=== PATIENT | male | born 1995 | race Hispanic/Latino ===

== ENCOUNTER 2024-01-16 18:22 | Observation (INO) | payer SELFPAY ==
[2024-01-16 18:27] VITALS: BP 112/100; PULSE 107; RESP 20; TEMP 36; O2SAT 99
[2024-01-16 19:27] VITALS: BP 132/91; PULSE 100; RESP 15; O2SAT 98
--- NOTE | 2024-01-16 19:33 | ED.RECABL ---
HPI - Recheck/Abnormal Lab/Rx General Chief Complaint: Recheck/Abnormal Lab/Rx Stated Complaint: Medication refil Time Seen by Provider: 01/16/24 19:32 Source: patient and family Mode of arrival: ambulatory History of Present Illness HPI narrative: Patient is 28 years old male does not speak Azeri complaining of not feeling well, general weakness, run out of his regular medication approximately 10 days ago. Patient supposed to be on Mag oxide 400 mg once a day, spironolactone 50 mg twice a day, pot chloride ER 20 mEq twice a day. The patient is telling me that he has been on this medication for the last 5 years, he missed last appointment with his family physician who declined to give him refill. Because been feeling bad and weak came to our emergency room. He denies any fever, chills, nausea, vomiting, chest pain, shortness of breath or headache. Related Data Allergies Allergy/AdvReac Type Severity Reaction Status Date / Time No Known Allergies Allergy Verified 01/16/24 19:33 Review of Systems Review of Systems: All systems reviewed & are unremarkable except as noted in HPI and below Exam Narrative: General appearance: Well-developed, well-nourished Skin: Normal color Head: Normocephalic, nontraumatic Eyes: Clear conjunctiva ENT: Oropharynx normal, ears normal, nose normal Neck: Supple, nontender Chest and respiratory: Airway patent, no respiratory distress, no accessory muscle use Heart: Regular rate/rhythm Abdomen: Soft, nontender, no organomegaly, quiet bowel sounds Vascular: Normal peripheral pulses, normal capillary refill. Musculoskeletal: Normal range of motion, nontender back Neurologic: Alert and oriented ?3, [employer] is normal as tested, no gross motor deficit Course Vital Signs Vital signs: Vital Signs Temperature 36.0 C L 01/16/24 18:27 Pulse Rate 107 H 01/16/24 18: Respiratory Rate 20 01/16/24 18:27 Blood Pressure 112/100 H 01/16/24 18:27 Pulse Oximetry 99 01/16/24 18:27 Oxygen Delivery Room Air 01/16/24 18:27 Temperature 36.0 C L 01/16/24 18:27 Pulse Rate 90 01/16/24 21:25 Respiratory Rate 17 01/16/24 21:25 Blood Pressure 119/84 01/16/24 21:25 Pulse Oximetry 99 01/16/24 21:25 Oxygen Delivery Room Air 01/16/24 18:27 MDM - Recheck/Abnormal Lab/Rx MDM Narrative Medical decision making narrative: PATIENT , SUPPOSED TO BE ON POTASSIUM SUPPLEMENT, MAGNESIUM SUPPLEMENT AND SPIRONOLACTONE SUPPLEMENT,/UNKNOWN DISEASE. RUN OUT OF MEDICATION AT LEAST 10 DAYS AGO, COMPLAINING OF FEELING BAD AND WEAK BLOOD WORKUP TODAY SHOWED POTASSIUM OF 2.3, MAGNESIUM OF 1.5 PATIENT TO BE ADMITTED TO [facility] FOR IV POTASSIUM AND MAGNESIUM SUPPLEMENT. Differential Diagnosis Differential diagnosis: Likely other (NONCOMPLIANT WITH MEDICATIONS, HYPOKALEMIA, HYPOMAGNESEMIA) Medical Records Attestation: I reviewed the patient's medical records. Lab Data Attestation: I reviewed the patient's lab results. 01/16/24 20:00 01/16/24 20:00 Labs: Lab Results 01/16/24 Range/Units 20:00 WBC 10.0 (4.5-10.0) K/mm3 RBC 5.57 (4.6-6.20) M/mm3 Hgb 15.8 (14.0-18.0) g/dL Hct 47.9 (42.0-52.0) % MCV 86.0 (80-100) fl MCH 28.4 (26-34) pg MCHC 33.0 (32-36) g/dl RDW 13.1 (11.5-14.5) % Plt Count 373 (150-375) k/mm3 MPV 10.1 (7.4-10.4) fl Immature Gran % (Auto) 0.2 (0-0.5) % Neut % (Auto) 54.6 (45.5-73.1) % Lymph % (Auto) 28.7 (18.3-44.2) % [place] % (Auto) 7.7 (2.6-8.5) % Eos % (Auto) 7.9 H (0-4.4) % Baso % (Auto) 0.9 (0.2-1.2) % Lymph # (Auto) 2.88 (0.9-3.2) K/mm3 [place] # (Auto) 0.8 H (0.1-0.6) K/mm3 Eos # (Auto) 0.8 H
[2024-01-16 20:07] LABS: Basophils Absolute Auto 0.1 K/mm3 (0.0-0.1); Basophils Percent Auto 0.9 % (0.2-1.2); Eosinophils Absolute Auto 0.8 K/mm3 (0-0.3); Eosinophils Percent Auto 7.9 % (0-4.4); Hematocrit 47.9 % (42.0-52.0); Hemoglobin 15.8 g/dL (14.0-18.0); Immature Granulocyte Absolute 0.02 K/mm3 (0.00-0.031); Immature Granulocyte Percent A 0.2 % (0-0.5); Lymphocytes Absolute Auto 2.88 K/mm3 (0.9-3.2); Lymphocytes Percent Auto 28.7 % (18.3-44.2); Mean Corpuscular Hemoglobin 28.4 pg (26-34); Mean Platelet Volume 10.1 fl (7.4-10.4); Monocytes Absolute Auto 0.8 K/mm3 (0.1-0.6); Monocytes Percent Auto 7.7 % (2.6-8.5); Neutrophils Absolute Auto 5.5 K/mm3 (1.3-6.7); Neutrophils Percent Auto 54.6 % (45.5-73.1); Platelet Count Result 373 k/mm3 (150-375); Red Blood Count 5.57 M/mm3 (4.6-6.20); Red Cell Distribution Width 13.1 % (11.5-14.5)
[2024-01-16 20:29] LABS: Alanine Aminotransferase 61 U/L (6-50); Albumin Level 4.6 g/dL (3.5-5.1); Alkaline Phosphatase 99 U/L (38-126); Anion Gap 7 mmol/L (8-16); Aspartate Amino Transferase 62 U/L (17-59); Bilirubin,Total 0.5 mg/dL (0.2-1.3); Blood Urea Nitrogen 13 mg/dL (9-20); Carbon Dioxide 32 mmol/L (22-30); Chloride 98 mmol/L (98-107); Estimated Glomerular Filt Rate > 60; Glucose 104 mg/dL (65-110); Potassium 2.3 mmol/L (3.4-5.0); Sodium 137 mmol/L (137-145)
[2024-01-16 20:37] LABS: Magnesium 1.5 mg/dL (1.6-2.3)
[2024-01-16 21:25] VITALS: BP 119/84; PULSE 90; RESP 17; O2SAT 99
--- NOTE | 2024-01-16 21:26 | ECG_ITS ---
Measurements Intervals [place] Rate: 89 P: 49 VT: 168 QRS: 126 QRSD: 114 T: 36 QT: 367 QTc: 449 Interpretive Statements SINUS RHYTHM POSSIBLE RIGHT VENTRICULAR HYPERTROPHY [SOME/ALL OF: PROMINENT R IN V1, LATE TRANSITION, RAD, GEOVANNY, SSS] ABNORMAL ECG NO PREVIOUS ECG AVAILABLE FOR COMPARISON Electronically Signed On 01-17-2024 12:32:59 [employer] by Tonio Huang M.D.
[2024-01-16] MEDS: MAGNESIUM SULF 2 GM/WATER 50ML 2 GM/50 ML BAG IVPB (21:47)
[2024-01-16] MEDS: POTASSIUM CHLORIDE 20 MEQ ER TABLET 40 MEQ PO (21:48)
[2024-01-17] MEDS: POTASSIUM CHLORIDE INJ 40 MEQ in SODIUM CHLORIDE 0.9% IV 500 ML 130 MEQ IVPB ×3 (00:01→14:45)
[2024-01-17] MEDS: SODIUM CHLORIDE 0.9% IV 500 ML 999 ML (00:15)
[2024-01-17 00:53] VITALS: BP 128/75; PULSE 92; RESP 15; O2SAT 98
--- NOTE | 2024-01-17 02:15 | PM.IMHP ---
H&P: HPI History of Present Illness Date/Time: 01/17/24 02:15 Chief Complaint: WEAKNESS Narrative: THIS IS A 28-YEAR-OLD MALE WITH PAST MEDICAL HISTORY SIGNIFICANT FOR MORBID OBESITY, PATIENT PRESENTS TO THE EMERGENCY ROOM DUE TO GENERALIZED WEAKNESS. DENIES ANY CHEST PAIN, SHORTNESS OF BREATH, FEVER FEVERS RIGORS OR CHILLS. HE WAS FOUND TO HAVE A POTASSIUM OF 2.3 MAGNESIUM 1.5 PATIENT HAS BEEN PLACED IN OBSERVATION Review of Systems Review of Systems: WEAKNESS Meds Home Medications and Allergies Allergies Allergy/AdvReac Type Severity Reaction Status Date / Time No Known Allergies Allergy Verified 01/16/24 19:33 Vital Signs Vital Signs - 24 hr 01/16/24 18:27 01/16/24 19:27 01/16/24 21:25 Temperature 96.8 F L Pulse Rate 107 H 100 90 Respiratory Rate 20 15 17 Blood Pressure 112/100 H 132/91 H 119/84 Pulse Oximetry 99 98 99 Oxygen Delivery Room Air 01/17/24 00:53 Temperature Pulse Rate 92 Respiratory Rate 15 Blood Pressure 128/75 Pulse Oximetry 98 Oxygen Delivery Exam Narrative: PATIENT IS LAYING IN A STRETCHER Const: General: comfortable, no acute distress, well developed, alert, awake and obese Nutritional Appearance: obese Orientation/consciousness: patient oriented x3 HENMT: Head: normal to inspection, normocephalic and atraumatic Ears: hearing grossly normal bilaterally Face/Nose/Sinus: normal facial exam Face and sinus: normal facial exam Eyes: General: appearance normal, both eyes and all related structures Pupils: Equal, round and reactive pupils present EOM: EOMs intact bilaterally Neck: Neck: full ROM, no lymphadenopathy and no JVD Thyroid: thyroid normal Lymphatic: no lymphadenopathy noted Resp: Effort & Inspection: normal respiratory effort and able to speak in complete sentences Auscultation: clear to auscultation bilaterally Cardio: Jugular venous distension: no JVD Rate: regular rate Rhythm: regular rhythm Heart sounds: S1 normal heart sound present and S2 normal heart sound present GI: GI Palp: Yes Soft to palpation and Yes No hepatosplenomegaly present : General: Yes deferred Skin: Rashes: no rashes Wounds: no wounds Neuro: General: patient oriented x3 and CN's II-XI intact bilaterally Cranial nerves: Yes CN's II-XII intact bilaterally and Yes Equal, round and reactive pupils present Cognition (Neuro): normal cognition Speech: normal speech Gait exam (Neuro): Normal gait present Motor exam (neuro): 5/5 motor strength present throughout Extrem: General: normal to inspection, full ROM, no joint enlargement and no pedal edema H&P: Results Labs Labs: Short CBC 01/16/24 Range/Units 20:00 WBC 10.0 (4.5-10.0) K/mm3 Hgb 15.8 (14.0-18.0) g/dL Hct 47.9 (42.0-52.0) % Plt Count 373 (150-375) k/mm3 BMP 01/16/24 20:00 Sodium 137 Potassium 2.3 L* Chloride 98 Carbon Dioxide 32 H BUN 13 Creatinine 0.70 Glucose 104 Calcium 9.0 Liver Function 01/16/24 Range/Units 20:00 Total Bilirubin 0.5 (0.2-1.3) mg/dL AST 62 H (17-59) U/L ALT 61 H (6-50) U/L Alkaline Phosphatase 99 (38-126) U/L Albumin 4.6 (3.5-5.1) g/dL Assessment and Plan Assessment and plan (1) Acute hypokalemia: Code(s): E87.6 - Hypokalemia Status: Acute (2) Hypomagnesemia: Code(s): E83.42 - Hypomagnesemia Status: Acute
[2024-01-17 03:18] VITALS: BP 108/63; PULSE 80; RESP 13; O2SAT 100
[2024-01-17 05:51] VITALS: BP 117/59; PULSE 83; RESP 14; O2SAT 100
[2024-01-17 07:20] VITALS: BP 91/65; PULSE 88; RESP 20; O2SAT 100
--- NOTE | 2024-01-17 08:01 | PC.NURSE ---
0800 Standard breakfast tray ordered
[2024-01-17 08:19] LABS: Basophils Absolute Auto 0.1 K/mm3 (0.0-0.1); Basophils Percent Auto 0.9 % (0.2-1.2); Eosinophils Absolute Auto 0.7 K/mm3 (0-0.3); Eosinophils Percent Auto 8.8 % (0-4.4); Hematocrit 46.6 % (42.0-52.0); Hemoglobin 15.6 g/dL (14.0-18.0); Immature Granulocyte Absolute 0.02 K/mm3 (0.00-0.031); Immature Granulocyte Percent A 0.2 % (0-0.5); Lymphocytes Absolute Auto 1.84 K/mm3 (0.9-3.2); Lymphocytes Percent Auto 22.6 % (18.3-44.2); Mean Corpuscular HGB Conc 33.5 g/dl (32-36); Mean Corpuscular Hemoglobin 28.4 pg (26-34); Mean Corpuscular Volume 84.7 fl (80-100); Mean Platelet Volume 9.7 fl (7.4-10.4); Monocytes Absolute Auto 0.7 K/mm3 (0.1-0.6); Monocytes Percent Auto 8.5 % (2.6-8.5); Neutrophils Absolute Auto 4.8 K/mm3 (1.3-6.7); Platelet Count Result 331 k/mm3 (150-375); Red Cell Distribution Width 13.3 % (11.5-14.5); White Blood Count 8.2 K/mm3 (4.5-10.0)
[2024-01-17 08:38] LABS: Alanine Aminotransferase 59 U/L (6-50); Albumin Level 4.7 g/dL (3.5-5.1); Alkaline Phosphatase 94 U/L (38-126); Anion Gap 5 mmol/L (8-16); Aspartate Amino Transferase 52 U/L (17-59); Bilirubin,Total 0.7 mg/dL (0.2-1.3); Blood Urea Nitrogen 10 mg/dL (9-20); Calcium 9.2 mg/dL (8.4-10.2); Carbon Dioxide 33 mmol/L (22-30); Chloride 101 mmol/L (98-107); Estimated Glomerular Filt Rate > 60; Glucose 100 mg/dL (65-110); Potassium 2.7 mmol/L (3.4-5.0); Sodium 139 mmol/L (137-145)
[2024-01-17] MEDS: SPIRONOLACTONE 50 MG TABLET PO (09:12)
[2024-01-17] MEDS: POTASSIUM CHLORIDE 20 MEQ ER TABLET PO (09:12)
[2024-01-17] MEDS: MAGNESIUM OXIDE 400 MG TABLET PO (09:12)
[2024-01-17 09:21] LABS: Magnesium 1.7 mg/dL (1.6-2.3)
[2024-01-17] MEDS: SODIUM CHLORIDE 0.9% IV 500 ML 130 ML ×2 (09:58→14:54)
--- NOTE | 2024-01-17 11:45 | PC.NURSE ---
ordered pt lunch tray
[2024-01-17 11:49] VITALS: BP 115/81; PULSE 78; RESP 14; O2SAT 98
[2024-01-17 14:27] LABS: Anion Gap 4 mmol/L (8-16); Blood Urea Nitrogen 11 mg/dL (9-20); Calcium 9.3 mg/dL (8.4-10.2); Carbon Dioxide 33 mmol/L (22-30); Chloride 101 mmol/L (98-107); Estimated Glomerular Filt Rate > 60; Glucose 89 mg/dL (65-110); Sodium 138 mmol/L (137-145)
[2024-01-17 14:52] VITALS: BP 116/64; PULSE 81; RESP 14; O2SAT 100
--- NOTE | 2024-01-17 15:25 | PM.DS ---
DS: Admitting Diagnosis Discharge Date 01/17/2024 Admitting Diagnosis Hypokalemia/Hypomagnesium DS: Discharge Diagnosis Discharge Diagnosis (1) Acute hypokalemia: Code(s): E87.6 - Hypokalemia Status: Acute (2) Hypomagnesemia: Code(s): E83.42 - Hypomagnesemia Status: Acute Plan Hypokalemia/Hypomagnesium -Replenished 80MEQ/2gram mag -cardiac monitoring -Chronic HX had not taken medication for 3 to 4 months DS: Summary Hospital Course Reason for hospitalization: Hypokalemia/Hypomagnesium Hospital Course: Patient was a 28-year-old male who presented to the emergency department with complaints of generalized weakness. Upon evaluation patient was found to be hypokalemic at 2.3 and a magnesium of 1.5. EKG showing sinus rhythm with possible right ventricular hypertrophy. Patient's vitals were stable and other labs unremarkable. Follow-up assessment with patient this is a chronic condition however he had an appointment with his primary care physician to get refills on his magnesium oxide 400mg daily and his potassium 20 mEq b.i.d. however he had to leave the [facility] for work and [employer] appointment and his primary care physician stated they would not be able to refill his prescription because he would need a follow-up labs. During patient's admission we replenish his potassium with 80 mEq IV and 40 p.o. as well as 2 g of magnesium IV. Patient denies any chest pain, palpitations, shortness of breath, fever, chills, dizziness and reported feeling back to baseline after receiving his IV potassium. Patient reports he has follow-up appointment scheduled for February 12 with his primary care physician will discharge patient home and prescribed 1 month of his potassium, magnesium and spirolactone with follow-up labs with primary care physician. Dorota Cox translated patient maldivian speaking only #[id number]. Status at Discharge Functional status at discharge: independent ambulation Overall status at discharge: patient is back to baseline Time Spent with Patient Time attestation: Total time spent providing and/or coordinating discharge services: Time spent: Greater than 30 minutes Exam Narrative: Physical Exam: GENERAL: Alert and oriented x 3. No acute distress. Well-nourished. EYES: EOMI. No scleral icterus. PERRLA. HEENT: Moist mucous membranes. No cervical lymphadenopathy. LUNGS: Clear to auscultation bilaterally. No accessory muscle use. CARDIOVASCULAR: Regular rate and rhythm. No murmur. No JVD. S1-S2 ABDOMEN: Soft, mild tenderness and non-distended. No palpable masses. EXTREMITIES: No edema. Non-tender SKIN: No rashes or lesions. Skin warm, dry. NEUROLOGIC: No focal neurological deficits. CN II-XII grossly intact PSYCHIATRIC: Appropriate mood and affect. Good judgement and insight. No visual or auditory hallucinations. No suicidal or homicidal ideation. DS: Data Data Completed and Pending Labs on day of discharge: Labs from last 24 hours 01/17/24 01/17/24 01/17/24 14:12 08:09 08:06 WBC 8.2 RBC 5.50 Hgb 15.6 Hct 46.6 MCV 84.7 MCH 28.4 MCHC 33.5 RDW 13.3 Plt Count 331 MPV 9.7 Immature Gran % (Auto) 0.2 Neut % (Auto) 59.0 Lymph % (Auto) 22.6 [place] % (Auto) 8.5 Eos % (Auto) 8.8 H Baso % (Auto) 0.9 Lymph # (Auto) 1.84 [place] # (Auto) 0.7 H Eos # (Auto) 0.7 H Baso # (Auto) 0.1 Abs Immat Gran (auto) 0.02 Absolute Neuts (auto) 4.8 Absolute Nucleated RBC 0.0 Nucleated RBC % 0.0 Sodium 138 139 Potassium 3.0 L 2.7 L* Chloride 101 101 Carbon Dioxide 33 H 33 H Anion Gap 4 L 5 L BUN 11 10 Creatinine 0.90 0.70 Estim Creat Clear Calc Not Reportable Not Reportable Estimated GFR > 60 > 60 Glucose 89 100 Calcium 9.3 9.2 Magnesium 1.7 Total Bilirubin 0.7 AST 52 ALT 59 H Alkaline Phosphatase 94 Total Protein 8.0 Albumin 4.7 01/16/24 20:00
[2024-01-17] MEDS: POTASSIUM CHLORIDE 20 MEQ PACKET (FOR LIQUID) 40 MEQ PO (15:43)
== END 2024-01-17 16:05 | disposition home or self-care (01) ==
LOC: ANHED 22:12 → ANH3MED 01-17 15:24 → ANH3MEDSUR 01-20 07:45
PROVIDERS: Nurse Practitioner Family; Admitting Provider Internal Medicine; Emergency Provider Emergency Medicine; PCP Physician Assistant; Visit Provider Internal Medicine
DX: E87.6 Hypokalemia (principal); E83.42 Hypomagnesemia; R94.31 Abnormal electrocardiogram [ECG] [EKG]; E66.01 Morbid (severe) obesity due to excess calories
CPT/HCPCS: 36415; 80048; 80053; 83735; 85025; 93005; 96365; 96366; 99285; A9270; G0378; J3475; J3480; J7040